=== PATIENT | male | born 2000 | race Caucasian/White ===

== ENCOUNTER 2024-06-20 13:19 | Emergency (ER) | payer OTHER ==
[~2024-06-20] VITALS: Ht 185.4 cm; Wt 77.1 kg
[2024-06-20] MEDS ORDERED: Diphth,Pertuss(Acell),Tet Vac 0.5 ML VIAL IM ONE (15:10)
== END 2024-06-20 15:30 | disposition home or self-care (01) ==
LOC: ER 13:19
DX: S61.412A Laceration without foreign body of left hand, initial encounter (principal); W22.8XXA Striking against or struck by other objects, initial encounter
CPT/HCPCS: 12004; 73130; 90471; 90715; 99283-25